=== PATIENT | female | born 1985 | race Caucasian/White ===

== ENCOUNTER 2022-12-12 13:10 | Inpatient (IN) | payer OTHER ==
[~2022-12-12] VITALS: Ht 170.2 cm; Wt 69.9 kg
[2022-12-26] MEDS ORDERED: PRENATAL CAPLE1 EAC1 PO (00:30)
== END 2022-12-28 13:48 | disposition home or self-care (01) | DRG 807 ==
LOC: LDR 12-26 00:25 → OB/GYN 12-26 00:25
PROVIDERS: ADMIT Obstetrics & Gynecology Gynecology; ATTEND Obstetrics & Gynecology Gynecology
PROC: 10E0XZZ Delivery of Products of Conception, External Approach (ICD-10-PCS; principal; 2022-12-26)
PROC: 0KQM0ZZ Repair Perineum Muscle, Open Approach (ICD-10-PCS; 2022-12-26)
PROC: 4A1HXCZ Monitoring of Products of Conception, Cardiac Rate, External Approach (ICD-10-PCS; 2022-12-26)
DX: O70.1 Second degree perineal laceration during delivery (principal); Z37.0 Single live birth; Z3A.38 38 weeks gestation of pregnancy; Z20.822 Contact with and (suspected) exposure to COVID-19

== ENCOUNTER 2023-02-08 06:13 | Day surgery (SDC) | payer OTHER ==
[~2023-02-08 06:13] MED LIST: MULTIVI PO; PRENATAL CAPLE1 EAC1 PO
== END 2023-02-08 16:05 | disposition home or self-care (01) ==
LOC: CIR.AMB 06:13
PROVIDERS: ATTEND Obstetrics & Gynecology Gynecology
DX: N87.1 Moderate cervical dysplasia (principal); D26.0 Other benign neoplasm of cervix uteri; Z20.822 Contact with and (suspected) exposure to COVID-19; B20 Human immunodeficiency virus [HIV] disease